=== PATIENT | female | born 1960 | race Caucasian/White ===

== ENCOUNTER 2018-10-28 06:18 | Day surgery (SDC) | payer OTHER ==
[2018-10-28] MEDS ORDERED: ONDANSETRON 4 MG INJ IV (08:30)
[2018-10-28] MEDS ORDERED: LABETALOL HCL 20MG INJ IV (08:30)
[2018-10-28] MEDS ORDERED: hydrALAzine 20 MG INJ IV (08:30)
[2018-10-28] MEDS ORDERED: PROPOFOL 60 ML (08:31)
[2018-10-28] MEDS ORDERED: LIDOCAINE 2% (SDV) 5 ML INJ (08:31)
== END 2018-10-28 10:30 | disposition home or self-care (01) ==
LOC: GIL 06:18
DX: Z12.11 Encounter for screening for malignant neoplasm of colon (principal); K64.9 Unspecified hemorrhoids; K29.50 Unspecified chronic gastritis without bleeding; B96.81 Helicobacter pylori [H. pylori] as the cause of diseases classified elsewhere; D12.2 Benign neoplasm of ascending colon; D12.4 Benign neoplasm of descending colon; I12.9 Hypertensive chronic kidney disease with stage 1 through stage 4 chronic kidney disease, or unspecified chronic kidney disease; N18.9 Chronic kidney disease, unspecified
CPT/HCPCS: 43239; 88305; 88312